=== PATIENT | female | born 1940 | race Caucasian/White ===

== ENCOUNTER → 2016-12-17 | Outpatient (CLI) | payer MEDICARE, OTHER ==
[2014-09-25 09:28] VITALS: BP 104/59
[~2016-12-17] MED LIST: ALEN70TA5 PO; BIOT1TAB PO; BUPIVACAINE MPF 0.25% 10 ML VIAL. ONE; CALC390T PO; CYCL1DRO EACHEYE; ESTR0.45 PO; IOHEXOL 180 MG/ML 10 ML VIAL. ONE; LEVO88TA2 PO; MULT-245 PO; NIFE30TA17 PO; OMEG300C PO; RIZA10TA PO; TOPI100T90 PO; TRAM50TA PO; methylPREDNISolone ACETATE 80 MG/ML VIAL. ONE
--- NOTE | 2016-12-18 03:59 | PAIN ---
DATE OF SERVICE: 12/17/2016 PROGRESS NOTE DIAGNOSES: Lumbar radiculopathy with lumbar spinal stenosis, lumbar post-laminectomy syndrome. HISTORY OF PRESENT ILLNESS: This is a 76-year-old female, who returns for followup, last seen on 09/20/2016. The patient did well, underwent a left lumbar transforaminal injection at that time with very good results, near about 80% improvement. The patient reports the pain is returning now over the past 2 weeks or so. She noticed when she is swimming, she swims 3 to 4 days a week and her leg feels more rubbery and less strong on the left side. The patient reports she had been very active as well as besides swimming and this is a cause of pain to increase some extent across the low back and into the left lower extremity as it was previously. The patient reports mostly in the left lower leg and posterior lateral aspect as well as the medial aspect of the lower leg to the ankle on the left side, also some in the thigh, mostly in the mid and low back on the left side. The patient reports it is an 8 on a scale of 10 at its worst, not been waking her from sleep; however. She has been increasing her activity with more discomfort, but still staying very active and is not ____ stop her very much. The patient reports no new motor or sensory deficits, no new bowel or bladder incontinence or other complaints. PHYSICAL EXAMINATION: VITAL SIGNS: The patient's blood pressure 111/49, pulse ____, respirations 18, temperature 98.1 degrees Fahrenheit, height is 5 feet 2 inches, weighs 111 pounds. GENERAL: The patient is awake, alert, oriented, appropriate, very pleasant demeanor. HEENT: Head shows normocephalic, atraumatic. Extraocular movements are intact and symmetrical. Oral cavity, mucous membranes are moist and pink. Dentition is intact. NECK: Shows anterior throat supple without palpable lymphadenopathy noted. Swallow reflex is symmetrical. CHEST: Shows normal on inspection. Breath sounds are clear to auscultation bilaterally. HEART: Shows S1 and S2 clear. ABDOMEN: Soft, nontender, nondistended. No palpable organomegaly, no rebound or guarding demonstrated. BACK: The patient's back shows spine grossly midline. Normal appearing cervical lordotic curvature, thoracic kyphotic curvature mild flattening of lumbar lordotic curvature with well-healed surgical scar in the midline is noted. Lumbar paraspinous musculature shows symmetrical on inspection with palpation is moderate tenderness to palpation, but only diffusely in the mid and lower lumbar distribution, more in the left than the right, but appears roughly symmetrical. No evidence of atrophy, hypertrophy, no trigger points, no radiation of pain. The patient shows good rotational motion of the lumbar spine, both laterally as well as extension and flexion without significant tenderness. EXTREMITIES: The patient's lower extremities showed deep tendon reflexes at 2+ in the patellar, 1+ tendo calcaneus tendons. Motor exam is strong with 5/5 dorsiflexion, extension, quadriceps and hamstring flexion equal and symmetrical. Options were discussed with the patient and the patient's old chart was reviewed as her current medication regimen updated. Current review of systems updated today as well. We will proceed with a left-sided L4-L5 transforaminal injection with fluoroscopic guidance. Risks were then discussed including, but not limited to bleeding, infection, possibility of epidural hematoma, subsequent neurologic compromise, dural puncture, headaches, spinal cord and/or nerve damage, side effects of steroid medication and poor results regarding pain control. Also, a potential injection of the vertebral artery at that level with permanent ischemic damage and exposure to fluoroscopy. The patient understands and wishes to proceed. The patient will return to clinic in approximately 2 weeks for followup, was counseled on return appointment, activity level, and side effects to be aware of. DIAGNOSES: Lumbar radiculopathy with lumbar spinal stenosis and post-lumbar laminectomy syndrome. PROCEDURE: Left L4-L5 transforaminal epidural injection with fluoroscopic guidance. Under sterile prep and drape using local anesthesia and a 22-gauge ____ tipped needle with stylet. MEDICATION INJECTED: An 80 mg Depo-Medrol plus 3 mL of 0.25% bupivacaine and 1.5 mL of Isovue for contrast. Good spread was noted in the medial aspect in the epidural space and laterally along the nerve root. No washout or uptake was noted with digital subtraction. CONDITION AT DISCHARGE: Stable. The patient tolerated the procedure well, had no complications. MICH MCNALLY MD DR: MARTIN/lissette JOB#: [id number] / [id number]
== END | disposition home or self-care (01) ==
LOC: PNCL 10:44
PROVIDERS: ATTEND Anesthesiology
DX: M48.06 Spinal stenosis, lumbar region (principal); M54.16 Radiculopathy, lumbar region; M96.1 Postlaminectomy syndrome, not elsewhere classified; E03.9 Hypothyroidism, unspecified; Z87.39 Personal history of other diseases of the musculoskeletal system and connective tissue; Z90.49 Acquired absence of other specified parts of digestive tract
CPT/HCPCS: 64483; J1040; J3490

== ENCOUNTER → 2017-03-25 | Outpatient (CLI) | payer MEDICARE, OTHER ==
[2014-09-25 09:28] VITALS: BP 104/59
--- NOTE | 2017-03-26 03:55 | PN ---
DATE: 03/25/2017 PROGRESS NOTE FOR PAIN CLINIC DIAGNOSES: Lumbar radiculopathy with lumbar spinal stenosis and post-lumbar laminectomy syndrome. HISTORY OF PRESENT ILLNESS: The patient is a 76-year-old female who returns for followup status post left-sided L4-L5 transforaminal injection on 12/17/2016. The patient did very well with this near 75% improvement overall. The patient reports the pain beginning return now in her low back and left leg as it was previously on and off, but certainly more noticeable that it was a few months ago. The patient reports it is anywhere from a 0-3 on a scale of 10 ____. Currently, she is getting ready to travel later in the month and would like to get treatment before she leaves. She notices about time for her pain to return. The patient reports sleeps well at night, does not awaken from sleep, has been increasing activity, but more noticeable with activity as aching and shooting pain into the left lateral thigh, anterior thigh as well as in the low back and left side. The patient reports no new motor or sensory deficits, no new bowel or bladder incontinence or other complaints. PHYSICAL EXAMINATION: VITAL SIGNS: Today, the patient shows blood pressure 135/60, pulse 63, respirations 18, temperature is 97.9 degrees Fahrenheit. Height is 5 feet 2 inches, weight is 108 pounds. GENERAL: The patient is awake, alert, oriented, appropriate, very pleasant demeanor. HEENT: Head shows normocephalic, atraumatic. Extraocular movements are intact and symmetrical. Oral cavity shows mucous membranes moist and pink. Dentition is intact. NECK: Shows anterior throat supple without palpable lymphadenopathy noted. Swallow reflex is symmetrical. Neck shows full rotational motion of the cervical spine without difficulty. CHEST: Shows normal on inspection. Breath sounds clear to auscultation bilaterally. HEART: Shows S1 and S2 clear. No murmurs auscultated. ABDOMEN: Soft, nontender, nondistended. No palpable organomegaly is noted. BACK: The patient's back shows spine grossly midline. Slight increase in thoracic kyphosis, mild flattening of lumbar lordotic curvature, previously well-healed surgical scars noted in the lumbar distribution. Lumbar paraspinous musculature shows symmetrical with palpation shows some very mild tenderness with palpation only in the middle and lower distribution, but without radiation, without asymmetry. The patient shows good rotation and motion of the lumbar spine, both laterally as well as extension and flexion without pain reported. Lower extremities show deep tendon reflexes at 2+ in the patellar, 1+ tendo-calcaneus tendons are equal. Motor exam is strong with 5/5 dorsiflexion, extension, quadriceps and hamstring flexion and are symmetrical. Options were discussed with the patient. The patient's old chart was reviewed as her current medication regimen updated. Current review of systems updated today as well. We will proceed with the left side L4-L5 transforaminal injection with fluoroscopic guidance. Risks were again discussed including, but not limited to bleeding, infection, possibility of epidural hematoma, subsequent neurologic compromise, dural puncture, headaches, spinal cord and/or nerve damage, side effects of steroid medication and poor results regarding pain control. The patient understands and wishes to proceed. The patient will return to clinic in approximately 4 weeks or as necessary, would like to call for next appointment. The patient was counseled on activity levels as well as side effects to be aware of. DIAGNOSES: Lumbar radiculopathy with lumbar spinal stenosis and post-lumbar laminectomy syndrome. PROCEDURES: Left L4-L5 transforaminal injection with fluoroscopic guidance under sterile prep and drape using local anesthetic. Medication injected a total of 80 mg of Depo-Medrol plus 2 mL of 0.25% bupivacaine and 1.5 mL of Isovue for contrast. CONDITION AT DISCHARGE: Stable. The patient tolerated procedure well, had no complications. MICH MCNALLY MD DR: MARTIN/lissette JOB#: [id number] / [id number]
== END | disposition home or self-care (01) ==
LOC: PNCL 10:02
PROVIDERS: ATTEND Anesthesiology
DX: M48.06 Spinal stenosis, lumbar region (principal); M54.16 Radiculopathy, lumbar region; M96.1 Postlaminectomy syndrome, not elsewhere classified; I82.4Z1 Acute embolism and thrombosis of unspecified deep veins of right distal lower extremity; E03.9 Hypothyroidism, unspecified; Z90.49 Acquired absence of other specified parts of digestive tract; Z98.41 Cataract extraction status, right eye; Z98.42 Cataract extraction status, left eye; Z90.710 Acquired absence of both cervix and uterus; Z87.39 Personal history of other diseases of the musculoskeletal system and connective tissue
CPT/HCPCS: 64483; J1040; J3490

== ENCOUNTER → 2017-06-21 | Outpatient (CLI) | payer MEDICARE, OTHER ==
[2014-09-25 09:28] VITALS: BP 104/59
[~2017-06-21] MED LIST changes: -BIOT1TAB PO; +BIOT1TAB2 PO; +TOPI100T8 PO; -TOPI100T90 PO; +methylPREDNISolone ACETATE 40 MG/ML VIAL. ONE
--- NOTE | 2017-06-21 18:55 | PAIN ---
DATE OF SERVICE: 06/21/2017 DIAGNOSES: Lumbar radiculopathy with lumbar spinal stenosis and lumbar post-laminectomy syndrome. HISTORY OF PRESENT ILLNESS: Ms. Rodas is a 77-year-old female who returns for followup, status post left L4-L5 transforaminal injection with the C-arm x 1. The patient reports she only had about 20% improvement after last injection, but she feels that she "overdid it" with activity after her last injection, even the day of the injection. The patient reports that she feels she has been increasing her activity with greater ease, but has been bringing the pain back more quickly. The patient reports the pain is an 8-9 on a scale of 10. It can be as high as a 10 at its worst, with some tingling, aching and burning into the left leg, posterior gluteus, posterior thigh, posterior calf as well as lateral anterior calf and lower leg on the left side. The patient reports no new motor or sensory deficits, no new bowel or bladder incontinence or other complaints. PHYSICAL EXAMINATION: VITAL SIGNS: The patient's blood pressure is 98/49, pulse 63, respirations 18, temperature is 97.7 degrees Fahrenheit. Height is 5 feet 1 inch, weight is 109 pounds. GENERAL: The patient is awake, alert, oriented, appropriate. Has very pleasant demeanor. HEENT: Head shows normocephalic, atraumatic. The patient wears eyeglasses. Extraocular movements are intact and symmetrical. Oral cavity, mucous membranes are moist and pink. Dentition is intact. NECK: Shows anterior throat supple. Swallow reflex is symmetrical. CHEST: Shows normal on inspection. Breath sounds are clear to auscultation bilaterally. HEART: Shows S1 and S2 clear. ABDOMEN: Soft, nontender, nondistended. BACK: Shows spine grossly in the midline. Has well-healed surgical scar that is noted in the lumbar distribution. Lumbar paraspinous musculature shows symmetrical on inspection. With palpation, it is very firm throughout the upper, middle and lower distribution, but only very mildly tender throughout as well, without radiation. The patient shows good rotational motion both laterally as well as with extension and flexion without exacerbation of pain in the lumbar spine. EXTREMITIES: Lower extremities show deep tendon reflexes 2+ in the patellar, 1+ tendo-calcaneus tendons, are equal. Motor exam is strong with 5/5 dorsiflexion, extension, quadriceps and hamstring flexion and are symmetrical. Peripheral pulses are 2+ in the posterior tibial distribution. No edema is noted. Options were discussed with the patient. The patient's old chart was reviewed, as her current medication regimen updated. Current review of systems updated today as well. We will proceed with a lumbar epidural steroid injection, translaminar approach. As we had an attempted a L4-L5 left-sided transforaminal without ease of placing the needle today, we changed the procedure to lumbar epidural steroid injection, translaminar approach. Risks were discussed prior to the procedure, including but not limited to bleeding, infection, possibility of epidural hematoma, subsequent neurologic compromise, dural puncture, headaches, spinal cord and/or nerve damage, side effects of steroid medication and poor results regarding pain control. The patient understands and wishes to proceed. The patient will return to clinic in approximately 2 weeks for followup. She was counseled on return appointment, activity level and side effects to be aware of. DIAGNOSES: Lumbar radiculopathy with lumbar spinal stenosis and post-lumbar laminectomy syndrome. PROCEDURE: Lumbar epidural steroid injection, translaminar approach, L4-L5 level; using C-arm fluoroscopic guidance, under sterile prep and drape, using local anesthetic. Medication injected is a total of 120 mg Depo-Medrol plus 5 mL preservative-free normal saline and 2 mL of Isovue for contrast. CONDITION AT DISCHARGE: Stable. The patient tolerated procedure well, had no complications. MICH MCNALLY MD DR: MARTIN/lissette JOB#: [id number] / [id number]
== END | disposition home or self-care (01) ==
LOC: PNCL 09:56
PROVIDERS: ATTEND Anesthesiology
DX: M48.06 Spinal stenosis, lumbar region (principal); M96.1 Postlaminectomy syndrome, not elsewhere classified; M54.10 Radiculopathy, site unspecified; E03.9 Hypothyroidism, unspecified; F17.200 Nicotine dependence, unspecified, uncomplicated; Z98.41 Cataract extraction status, right eye; Z98.42 Cataract extraction status, left eye; Z86.718 Personal history of other venous thrombosis and embolism; Z90.710 Acquired absence of both cervix and uterus; Z90.49 Acquired absence of other specified parts of digestive tract; Z87.39 Personal history of other diseases of the musculoskeletal system and connective tissue; Z88.6 Allergy status to analgesic agent
CPT/HCPCS: 62323; J1030; J1040; J3490

== ENCOUNTER → 2017-08-11 | Outpatient (CLI) | payer MEDICARE, OTHER ==
[2014-09-25 09:28] VITALS: BP 104/59
[~2017-08-11] MED LIST changes: -BUPIVACAINE MPF 0.25% 10 ML VIAL. ONE; -IOHEXOL 180 MG/ML 10 ML VIAL. ONE; -methylPREDNISolone ACETATE 40 MG/ML VIAL. ONE; -methylPREDNISolone ACETATE 80 MG/ML VIAL. ONE
--- NOTE | 2017-08-11 12:18 | PAIN ---
DATE OF SERVICE: 08/11/2017 PROGRESS NOTE FOR PAIN CLINIC DIAGNOSES: Lumbar radiculopathy with lumbar spinal stenosis and post-lumbar laminectomy syndrome. HISTORY OF PRESENT ILLNESS: The patient is a 77-year-old female who returns for followup status post transforaminal injections on the left at L4-L5 and lumbar epidural steroid injection on the left L4-L5. Originally, doing very well with the injections. The patient has had less success over the past several injections with only a 20%-50% improvement, which normally she gets 75%-200% improvement with the injections traditionally. The patient has had increased pain in the low back into the left lower extremity as it was previously, still exercising and swimming daily. Reports that she has almost no pain when she is in the pool but still pain outside the pool, low back, left lower extremity aching, shooting, stabbing and becoming more constant; better with lying down or sitting; does not awaken her from sleep. She sleeps 8-9 hours at night without the pain waking her but when she is on her feet, walking, standing or even sitting for more than about an hour, the pain returns. The patient reports no new motor or sensory deficits and no new bowel or bladder incontinence or other complaints but still significant pain again increasing as noted. PAST MEDICAL HISTORY: Significant for cigarette smoking, quit 25 years ago, also has history of headaches and arthritis. PAST SURGICAL HISTORY: Previous back surgery, cataract extractions, appendectomy, tonsillectomy, cholecystectomy, inguinal hernia repair as well as hysterectomy. CURRENT MEDICATIONS: Updated and well documented on the patient's chart. ALLERGIES: The patient is allergic to CODEINE and BENADRYL. FAMILY HISTORY: Significant for headaches, diabetes, cancers and spinal problems. REVIEW OF SYSTEMS: The patient's review of systems is positive for those items mentioned in history of present illness. All systems reviewed and otherwise negative. It is complete, full and well documented on the patient's chart. PHYSICAL EXAMINATION: VITAL SIGNS: Today, the patient's blood pressure is 113/60, pulse 58, respirations 20, temperature 98.2 degrees Fahrenheit, height is 5 feet 2 inches and weight is 112 pounds. GENERAL: The patient is awake, alert, oriented, appropriate, very pleasant demeanor. The patient is accompanied by her son. HEENT: Head shows normocephalic and atraumatic. Extraocular movements are intact and symmetrical. Oral cavity shows mucous membranes moist and pink. Dentition is intact. NECK: Shows anterior throat supple without palpable lymphadenopathy noted. Swallow reflex is symmetrical. CHEST: Shows normal on inspection. Breath sounds are clear to auscultation bilaterally. HEART: Shows S1 and S2 clear. No murmurs auscultated. ABDOMEN: Soft, nontender and nondistended. No palpable organomegaly. No rebound or guarding demonstrated. BACK: Shows spine grossly in the midline. Slight exaggeration of thoracic kyphosis and mild flattening of the lumbar lordotic curvature. Well healed lumbar surgical scars noted. Lumbar paraspinous musculature is symmetrical. On inspection with palpation shows some moderate tenderness to palpation, more on the left than the right, but only in the middle and lower distribution appears symmetrical. No atrophy, hypertrophy without trigger points. No radiation of pain. No tenderness over the spinous processes over the sacrum or sacroiliac regions. EXTREMITIES: Lower extremities showed deep tendon reflexes 2+ in the patella, 1+ in the tendo-calcaneus tendons, are equal. Motor exam is strong with 5/5 dorsiflexion, extension, quadriceps and hamstring flexion and symmetrical. Peripheral pulses are 1+, posterior tibial. No peripheral edema is noted. No clubbing or cyanosis. Options were discussed with the patient and the patient's son who accompanies her to visit today. We will order MRI scan as the patient is having less success with the injections, which traditionally done very well for her. Again with the left radiculopathy, MRI scan is obtained, we will have this compared to the most recent one, which was in January and we will determine either neurosurgical consultation or repeat lumbar injections. The patient would like to do the MRI scan first. We will make the arrangements for this, have her follow up after the MRI scan was obtained. The patient was encouraged to maintain her activity and especially her exercises and swimming and we will follow up as scheduled. MICH MCNALLY MD DR: MARTIN/lissette JOB#: [id number] / [id number]
== END | disposition home or self-care (01) ==
LOC: PNCL 09:46
PROVIDERS: ATTEND Anesthesiology
DX: M48.061 Spinal stenosis, lumbar region without neurogenic claudication (principal); M54.16 Radiculopathy, lumbar region; M79.605 Pain in left leg; F17.210 Nicotine dependence, cigarettes, uncomplicated; Z90.49 Acquired absence of other specified parts of digestive tract; Z90.710 Acquired absence of both cervix and uterus
CPT/HCPCS: G0463

== ENCOUNTER → 2017-08-18 | Outpatient (CLI) | payer MEDICARE, OTHER ==
[2014-09-25 09:28] VITALS: BP 104/59
[~2017-08-18] MED LIST changes: +GADOBUTROL 7.5 MMOL/7.5 ML VIAL IV ONE
[2017-08-18 10:24] LABS: CREATININE 1.2 mg/dL (0.6-1.0); GFR 43.6
--- NOTE | 2017-08-18 11:44 | RAD ---
EXAM: Lumbar spine MRI without and with contrast. HISTORY: Lower back pain and left lower extremity radiculopathy. TECHNIQUE: Multiplanar, multisequence magnetic resonance imaging of the lumbar spine was performed prior to and following the administration of 5 cc Gadavist intravenous contrast. COMPARISON: 01/29/2015 FINDINGS: There is lumbar levoscoliosis centered at L2-L3. There is grade 1 anterolisthesis of L5 on S1, with left and possibly right pars interarticularis defects. There is slight retrolisthesis of L4 on L5. There is degenerative endplate remodeling with disc space narrowing, osteophytosis and Schmorl's node formation primarily along the right aspects of L2-L3 and L3-L4 and left aspects of L4-L5 and L5-S1. This corresponds with levels of maximum scoliotic concavity. The conus terminates at T12. No suspicious osseous lesion is seen. There are several hemangiomas. There is colonic diverticulosis. At L1-L2, there is mild bilateral facet arthropathy. There is slight hypertrophy of the ligamentum flavum. There is no stenosis. At L2-L3, there is a right foraminal to lateral disc protrusion superimposed on a right lateral predominant disc bulge and endplate osteophytosis. There is moderate right and mild left facet arthropathy. There is hypertrophy of the ligamentum flavum. There is moderate to severe right foraminal stenosis. There is moderate central canal stenosis. At L3-L4, there is a right lateral predominant disc bulge and endplate osteophytosis. There is moderate bilateral facet arthropathy. There is hypertrophy of the ligamentum flavum. There is severe right foraminal stenosis. There is mild to moderate central canal stenosis. At L4-L5, there is a left lateral predominant disc bulge and endplate osteophytosis. There is a suspected 9 mm complex synovial cyst or superior extruded disc material projecting from the left facet joint into the left lateral recess.. There is moderate left facet arthropathy. There is severe left foraminal stenosis. There is mild to moderate central canal stenosis. At L5-S1, there are bilateral foraminal to extra foraminal disc protrusion superimposed on a disc bulge. There is moderate left and mild right facet arthropathy with small posterior facet joint synovial cyst. There is grade 1 anterolisthesis. There is mild right and moderate left foraminal stenosis with abutment of the exiting L5 nerve roots. IMPRESSION: 1. Multilevel degenerative change throughout the lumbar spine, described in detail above. This results in moderate to severe right foraminal and moderate central canal stenosis at L2-L3, severe right foraminal and mild to moderate central canal stenosis at L2-L3, severe right foraminal and [id number] central canal stenosis at L3-L4, severe left foraminal and [id number] central canal stenosis at L4-L5, and mild right and moderate left foraminal stenosis at L5-S1. These findings are stable to minimally increased compared to the prior study. 2. Grade 1 anterolisthesis of L5 on S1, with left and possibly right pars defects. 3. Lumbar scoliosis. Electronically signed by: Munira Hamilton MD (08/18/2017 11:41 AM) [id number]
== END | disposition home or self-care (01) ==
LOC: MRI 09:29
PROVIDERS: ATTEND Anesthesiology
DX: M51.36 Other intervertebral disc degeneration, lumbar region (principal); M41.86 Other forms of scoliosis, lumbar region; E03.9 Hypothyroidism, unspecified; F17.200 Nicotine dependence, unspecified, uncomplicated; Z98.41 Cataract extraction status, right eye; Z98.42 Cataract extraction status, left eye; Z98.890 Other specified postprocedural states; Z90.49 Acquired absence of other specified parts of digestive tract; Z90.710 Acquired absence of both cervix and uterus; Z87.39 Personal history of other diseases of the musculoskeletal system and connective tissue; Z88.6 Allergy status to analgesic agent
CPT/HCPCS: 36415; 72158; 82565; A9585

== ENCOUNTER → 2019-09-19 | Outpatient (CLI) | payer OTHER, MEDICARE ==
[2014-09-25 09:28] VITALS: BP 104/59
[~2019-09-19] MED LIST changes: -ALEN70TA5 PO; +ALEN70TA6 PO; -GADOBUTROL 7.5 MMOL/7.5 ML VIAL IV ONE; +NAPR220C4 PO
--- NOTE | 2019-09-19 14:40 | KCIC ---
MRI Brain without contrast History: Memory changes, short-term memory loss, falls Technique: Multiplanar, multisequential noncontrast MR imaging was performed of the brain. Comparison: November 26, 2016 Findings: There is no evidence of recent infarct or cytotoxic edema. Ventricular size is within normal limits. There is again mild generalized supratentorial involutional change not unexpected for the patient's age.There is no significant midline shift, intraaxial mass effect, or focal abnormal extra-axial fluid collection. There is scattered mild T2 and FLAIR hyperintense signal abnormality of the supratentorial parenchyma greatest of the parietal lobes somewhat increased in interval. There are some small foci of volume loss likely due to old lacunar infarcts including new foci of the left frontal lobe and left periatrial white matter, small focus of the right frontal lobe present previously. There is no significant hemosiderin deposition of the brain parenchyma. There is preservation of the major intracranial flow-voids at the skull base. The mastoid air cells are aerated. The cerebellar tonsils are normal in location. There is no significant abnormality of the pineal gland or pituitary gland. There is patchy [id number]-xhweluqa bilateral ethmoid air cell mucosal thickening, also right maxillary sinus mucosal thickening. There is other heterogeneous signal in the maxillary sinuses bilaterally which may be due to mucus. There is preserved marrow signal of the clivus. Impression: 1. There is no evidence of recent infarct or intracranial mass effect. There is nonspecific mild T2 and FLAIR hyperintense signal abnormality of the supratentorial parenchyma bilaterally more commonly due to chronic microvascular ischemic disease in a patient this age somewhat progressed since previous 2017 exam, also small old lacunar infarcts. 2. There is paranasal sinus mucosal thickening as stated. Electronically signed by: Michael Tolbert MD (09/19/2019 2:37 PM) [id number]
== END | disposition home or self-care (01) ==
LOC: KCIC MRI 11:32
PROVIDERS: ATTEND Physician Assistant Medical
DX: J34.89 Other specified disorders of nose and nasal sinuses (principal)
CPT/HCPCS: 70551